=== PATIENT | female | born 1955 | race Native Hawaiian/Other Pacific Islander ===

== ENCOUNTER 2017-04-18 08:16 | Day surgery (SDC) | payer OTHER ==
[~2017-04-18 08:16] MED LIST: CHLOSUS43 PO; CRESTOR5 MG PO; FURO40TA93 PO; KLOR-CON M2020 MEQ OR; LEVAQUIN500 MG OR; TESSALON200 MG OR
== END 2017-04-18 10:30 | disposition home or self-care (01) ==
LOC: OR 08:16
PROC: 08RJ3JZ Replacement of Right Lens with Synthetic Substitute, Percutaneous Approach (ICD-10-PCS; principal; 2017-04-18)
DX: H25.811 Combined forms of age-related cataract, right eye (principal)
CPT/HCPCS: 66984; J0171; V2632

== ENCOUNTER 2017-05-23 07:11 | Day surgery (SDC) | payer OTHER | END 2017-05-23 09:20 | disposition home or self-care (01) | LOC: OR 07:11 | PROC: 08RK3JZ Replacement of Left Lens with Synthetic Substitute, Percutaneous Approach (ICD-10-PCS; principal; 2017-05-23) | DX: H25.812 Combined forms of age-related cataract, left eye (principal) | CPT/HCPCS: 66984; J0171; V2632 ==

== ENCOUNTER 2017-10-06 12:40 | Outpatient (CLI) | payer OTHER | END 2017-10-06 22:57 | disposition home or self-care (01) | LOC: RAD 12:40 | DX: J20.8 Acute bronchitis due to other specified organisms (principal) ==

== ENCOUNTER 2018-05-02 15:06 | Outpatient (CLI) | payer OTHER ==
[2018-05-02 15:31] LABS: PLATELET COUNT 260 K/uL (152-353)
== END 2018-05-02 22:34 | disposition home or self-care (01) ==
LOC: LABW 15:06
PROVIDERS: Psychiatry & Neurology Psychiatry
DX: K29.00 Acute gastritis without bleeding (principal); I95.1 Orthostatic hypotension
CPT/HCPCS: 36415; 85027; 85044

== ENCOUNTER 2018-09-29 13:59 | Emergency (ER) | payer OTHER ==
[~2018-09-29] VITALS: Ht 162.6 cm; Wt 122.0 kg
[2018-09-29 14:00] VITALS: TEMP 97.8
[2018-09-29 15:07] LABS: PLATELET COUNT 283 K/uL (152-353)
[2018-09-29 15:16] LABS: POTASSIUM 3.6 mmol/L (3.6-5.2); SODIUM 139 mmol/L (136-145)
[2018-09-29 16:00] VITALS: BP 146/79
== END 2018-09-29 16:00 | disposition home or self-care (01) ==
LOC: ED 13:59
PROVIDERS: Emergency Medicine
DX: K21.9 Gastro-esophageal reflux disease without esophagitis (principal); R07.89 Other chest pain
CPT/HCPCS: 80053; 81000; 82550; 84484; 85027; 93005; 99283

== ENCOUNTER 2019-06-20 11:37 | Outpatient (CLI) | payer OTHER | END 2019-06-20 20:06 | disposition home or self-care (01) | LOC: RAD 11:37 | DX: J40 Bronchitis, not specified as acute or chronic (principal) ==

== ENCOUNTER 2021-03-11 14:25 | Outpatient (CLI) | payer OTHER | END 2021-03-11 19:15 | disposition home or self-care (01) | LOC: US 14:25 | PROVIDERS: ATTEND Internal Medicine | DX: R60.0 Localized edema (principal) ==

== ENCOUNTER 2021-08-31 10:29 | Outpatient (CLI) | payer OTHER | END 2021-08-31 19:14 | disposition home or self-care (01) | LOC: RAD 10:29 | PROVIDERS: ATTEND Internal Medicine | DX: J40 Bronchitis, not specified as acute or chronic (principal) ==

== ENCOUNTER 2022-04-24 21:49 | Emergency (ER) | payer OTHER ==
[~2022-04-24] VITALS: Ht 160 cm; Wt 111.6 kg
[2022-04-24 21:55] VITALS: BP 157/74; TEMP 98.8
== END 2022-04-24 23:35 | disposition home or self-care (01) ==
LOC: ED 21:49
DX: S63.591A Other specified sprain of right wrist, initial encounter (principal); S80.02XA Contusion of left knee, initial encounter; W01.0XXA Fall on same level from slipping, tripping and stumbling without subsequent striking against object, initial encounter; Y92.511 Restaurant or cafe as the place of occurrence of the external cause
CPT/HCPCS: 99282

== ENCOUNTER 2022-04-27 16:29 | Emergency (ER) | payer OTHER ==
[~2022-04-27] VITALS: Ht 160 cm; Wt 111.6 kg
[2022-04-27 19:40] VITALS: BP 131/70; TEMP 97.9
== END 2022-04-27 19:45 | disposition home or self-care (01) ==
LOC: ED 16:29
PROC: 2W3DX1Z Immobilization of Left Lower Arm using Splint (ICD-10-PCS; principal; 2022-04-27)
DX: S52.592A Other fractures of lower end of left radius, initial encounter for closed fracture (principal); S60.012A Contusion of left thumb without damage to nail, initial encounter; W01.0XXA Fall on same level from slipping, tripping and stumbling without subsequent striking against object, initial encounter; Y92.89 Other specified places as the place of occurrence of the external cause
CPT/HCPCS: 99283

== ENCOUNTER 2022-07-24 11:52 | Emergency (ER) | payer OTHER ==
[~2022-07-24] VITALS: Ht 160 cm; Wt 111.6 kg
[2022-07-24 12:08] VITALS: TEMP 98
[2022-07-24 12:58] LABS: PLATELET COUNT 289 K/uL (152-353)
[2022-07-24 16:52] VITALS: BP 134/64
== END 2022-07-24 17:00 | disposition home or self-care (01) ==
LOC: ED 11:52
PROVIDERS: Emergency Medicine
DX: K52.89 Other specified noninfective gastroenteritis and colitis (principal)
CPT/HCPCS: 36415; 80053; 81000; 82150; 83690; 85027; 96365; 96375; 96376; 99284; J0696; J1170; J2175; J2405; Q9963